=== PATIENT | male | born 1990 | race Caucasian/White ===

== ENCOUNTER → 2024-05-25 07:43 | Outpatient (CLI) | payer OTHER, SELFPAY ==
--- NOTE | 2024-05-25 07:46 | DI.US.S_ITS ---
PROCEDURE: US ABDOMEN LIMITED INDICATIONS: Hepatomegaly TECHNIQUE: Real-time scanning was performed of the abdominal and retroperitoneal organs, with image documentation. COMPARISON: None. FINDINGS: Liver: Normal size. Increased liver echogenicity, likely mild hepatic steatosis. Intermittent loss of portal wall echogenicity. Gallbladder: No gallstones. No wall thickening. No pericholecystic edema. Negative sonographic Morales's sign. Biliary ducts: Intrahepatic bile ducts are non-dilated. Extrahepatic bile duct caliber measures 5 mm. Normal is 6-7 mm or less in diameter, or 10 mm or less post-cholecystectomy. Pancreas: Visualized portions of the pancreas are sonographically normal. Miscellaneous: No free abdominal fluid. IMPRESSION: Normal size of the liver. Moderate hepatic steatosis. Dictated by: Abe Elder M.D. on 05/25/2024 at 8:36 Approved by: Abe Elder M.D. on 05/25/2024 at 8:38
== END ==
PROVIDERS: Referring Provider Internal Medicine; Visit Provider Internal Medicine
DX: K76.0 Fatty (change of) liver, not elsewhere classified (principal); R16.0 Hepatomegaly, not elsewhere classified; E66.9 Obesity, unspecified
CPT/HCPCS: 76705